=== PATIENT | male | born 1965 | race Caucasian/White ===

== ENCOUNTER 2022-06-23 18:16 | Emergency (ER) | payer SELFPAY ==
[~2022-06-23] VITALS: Ht 198 cm; Wt 122.0 kg
[2022-06-23 18:16] VITALS: BP 156/102
[2022-06-23] MEDS ORDERED: LACTATED RINGERS 1,000 ML IV ONE (19:00)
[2022-06-23 19:14] LABS: BASOPHILS % (AUTO) 0 % (0-10); EOSINOPHILS # (AUTO) 0.1 10^3/uL (0.0-0.3); EOSINOPHILS % (AUTO) 1 % (0-10); HEMATOCRIT 46 % (40-54); HEMOGLOBIN 15.1 g/dL (13.3-17.7); LYMPHOCYTES # (AUTO) 1.6 10^3/uL (1.0-4.0); LYMPHOCYTES % (AUTO) 16 % (12-44); MEAN CORPUSCULAR HEMOGLOBIN 29 pg (25-34); MEAN CORPUSCULAR HGB CONC 33 g/dL (32-36); MEAN CORPUSCULAR VOLUME 90 fL (80-99); MEAN PLATELET VOLUME 11.7 fL (9.0-12.2); MONOCYTES # (AUTO) 0.9 10^3/uL (0.0-1.0); MONOCYTES % (AUTO) 9 % (0-12); NEUTROPHILS # (AUTO) 7.5 10^3/uL (1.8-7.8); NEUTROPHILS % (AUTO) 74 % (42-75); PLATELET COUNT 179 10^3/uL (130-400); WHITE BLOOD COUNT 10.2 10^3/uL (4.3-11.0)
[2022-06-23 19:25] LABS: INR 1.1 (0.8-1.4); PROTHROMBIN TIME PATIENT 14.4 SEC (12.2-14.7)
--- NOTE | 2022-06-23 19:40 | Diagnostic Imaging Report ---
PROCEDURE: CT head and CT cervical spine without contrast. TECHNIQUE: Multiple contiguous axial images were obtained through the brain and cervical spine without the use of intravenous contrast. Sagittal and coronal reformations through the cervical spine were then performed. Auto Exposure Controls were utilized during the CT exam to meet ALARA standards for radiation dose reduction. INDICATION: Fall with head and neck injuries. CT HEAD: CT images of the head were obtained. FINDINGS: Ventricles and sulci are within normal limits for size. There is no intracranial hemorrhage identified. There is no abnormal mass effect or shift of midline structures. IMPRESSION: Unremarkable CT of the head. CT CERVICAL SPINE: Multiple contiguous axial CT images of the cervical spine were obtained with sagittal and coronal reformatted images produced. FINDINGS: The cervical curvature and alignment are within normal limits. The vertebral body heights and disc spaces are maintained without evidence of fracture or subluxation. There is no paraspinous hematoma. There is mild C5-C6 degenerative disc disease with endplate spurring present. IMPRESSION: No CT evidence of acute cervical spinal abnormality. Dictated by: Dictated on workstation # [id number]
--- NOTE | 2022-06-23 19:42 | Diagnostic Imaging Report ---
PROCEDURE: CT thoracic and lumbar spine without contrast. TECHNIQUE: Multiple contiguous axial images were obtained through the thoracic and lumbar spine without the use of intravenous contrast. Sagittal and coronal reformations were then performed. All CT scans use one or more of the following dose optimizing techniques: automated exposure control, MA and/or KvP adjustment based on patient size and exam type or iterative reconstruction. INDICATION: Fall with back pain. FINDINGS: Thoracolumbar spinal curvature and alignment are unremarkable. Vertebral body heights and disc spaces are maintained. There is no evidence of acute fracture or subluxation. No paraspinous hematoma seen. IMPRESSION: No CT evidence of acute thoracolumbar spinal injury. Dictated by: Dictated on workstation # [id number]
[2022-06-23 19:56] LABS: ALANINE AMINOTRANSFERASE 26 U/L (0-55); ALBUMIN 4.5 GM/DL (3.2-4.5); ALKALINE PHOSPHATASE 86 U/L (40-136); AMMONIA 23 UMOL/L (11-32); BILIRUBIN,TOTAL 0.8 MG/DL (0.1-1.0); BUN/CREATININE RATIO 11; CALCIUM 9.8 MG/DL (8.5-10.1); CARBON DIOXIDE 25 MMOL/L (21-32); CHLORIDE 104 MMOL/L (98-107); CREATINE KINASE 188 U/L (30-200); CREATININE SERUM 1.26 MG/DL (0.60-1.30); GFR ESTIMATED 67; GLUCOSE 97 MG/DL (70-105); MAGNESIUM 2.1 MG/DL (1.6-2.4); POTASSIUM 4.3 MMOL/L (3.6-5.0); SODIUM 139 MMOL/L (135-145); TOTAL PROTEIN 7.3 GM/DL (6.4-8.2)
--- NOTE | 2022-06-23 19:58 | Diagnostic Imaging Report ---
INDICATION: Fall. EXAMINATION: Single AP view of the chest was obtained. COMPARISON: No previous study is available for comparison at this time. FINDINGS: Heart size and pulmonary vasculature are within normal limits, and the lungs are clear, bilaterally. IMPRESSION: Unremarkable chest. Dictated by: Dictated on workstation # [id number]
--- NOTE | 2022-06-23 19:59 | Diagnostic Imaging Report ---
INDICATION: Fall with pelvic pain. EXAMINATION: AP view of the pelvis was obtained. FINDINGS: No acute fracture or dislocation is identified. No abnormal lytic or sclerotic focus is seen, and there is no radiopaque foreign body. IMPRESSION: No acute abnormality. Dictated by: Dictated on workstation # [id number]
--- NOTE | 2022-06-23 20:01 | ED General ---
General Chief Complaint: Trauma-Non Activation Stated Complaint: FALL Nursing Triage Note: ARRIVED VIA EMS FROM [facility]. EMS CALLED BECAUSE HE WAS HAVING A SURGING SENSATION IN HIS LEGS. PT STATES HE FELL THIS AM ET HAD +LOC. PT STATES HE WALKED TO [facility] AND IS HOMELESS. Source of Information: Patient (LIMITED HISTORIAN) Allergies and Home Medications Allergies Coded Allergies: No Known Drug Allergies (Unverified , 06/23/22) Patient Home Medication List Ciprofloxacin HCl (Ciprofloxacin HCl) 500 Mg Tablet, 500 MG PO BID Prescribed by: DEANDRE SALAS on 06/23/222101 Past Lketayc-Lladki-Obdupm Hx Patient Social History Tobacco Use?: Yes Tobacco type used: Cigarettes Smoking Status: Current Everyday Smoker Substance use?: Yes Additional substance use comme: PT STATES HE BUYS PAIN MEDS OFF THE STREETS Alcohol Use?: Yes Alcohol Frequency: Couple times a week Immunizations Up To Date Second COVID19 Vaccination Bret: UNKNOWN COVID19 Vaccine Last Greaser: UNKNOWN Physical Exam Vital Signs Vital Signs - First Documented 06/23/22 18:16 Temp 36.3 Pulse 98 Resp 16 B/P (MAP) 156/102 (120) Pulse Ox 99 O2 Delivery Room Air Capillary Refill : Less Than 3 Seconds Height, Weight, BMI Height: '" Weight: lbs. oz. kg; 31.00 BMI Method: Progress/Results/Core Measures Suspected Sepsis SIRS Temperature: Pulse: 98 Respiratory Rate: 16 Laboratory Tests 06/23/22 19:08: White Blood Count 10.2 Blood Pressure 156 /102 Mean: 120 Laboratory Tests 06/23/22 19:08: Creatinine 1.26, INR Comment 1.1, Platelet Count 179, Total Bilirubin 0.8 Results/Orders Lab Results Laboratory Tests Test 06/23/22 19:08 06/23/22 20:23 Range/Units White Blood Count 10.2 4.3-11.0 10^3/uL Red Blood Count 5.13 4.30-5.52 10^6/uL Hemoglobin 15.1 13.3-17.7 g/dL Hematocrit 46 40-54 % Mean Corpuscular Volume 90 80-99 fL Mean Corpuscular Hemoglobin 29 25-34 pg Mean Corpuscular Hemoglobin Concent 33 32-36 g/dL Red Cell Distribution Width 13.4 10.0-14.5 % Platelet Count 179 130-400 10^3/uL Mean Platelet Volume 11.7 9.0-12.2 fL Immature Granulocyte % (Auto) 0 % Neutrophils (%) (Auto) 74 42-75 % Lymphocytes (%) (Auto) 16 12-44 % Monocytes (%) (Auto) 9 0-12 % Eosinophils (%) (Auto) 1 0-10 % Basophils (%) (Auto) 0 0-10 % Neutrophils # (Auto) 7.5 1.8-7.8 10^3/uL Lymphocytes # (Auto) 1.6 1.0-4.0 10^3/uL Monocytes # (Auto) 0.9 0.0-1.0 10^3/uL Eosinophils # (Auto) 0.1 0.0-0.3 10^3/uL Basophils # (Auto) 0.0 0.0-0.1 10^3/uL Immature Granulocyte # (Auto) 0.0 0.0-0.1 10^3/uL Prothrombin Time 14.4 12.2-14.7 SEC INR Comment 1.1 0.8-1.4 Activated Partial Thromboplast Time 31 24-35 SEC Sodium Level 139 135-145 MMOL/L Potassium Level 4.3 3.6-5.0 MMOL/L Chloride Level 104 98-107 MMOL/L Carbon Dioxide Level 25 21-32 MMOL/L Anion Gap 10 5-14 MMOL/L Blood Urea Nitrogen 14 7-18 MG/DL Creatinine 1.26 0.60-1.30 MG/DL Estimat Glomerular Filtration Rate 67 BUN/Creatinine Ratio 11 Glucose Level 97 70-105 MG/DL Calcium Level 9.8 8.5-10.1 MG/DL Corrected Calcium 9.4 8.5-10.1 MG/DL Magnesium Level 2.1 1.6-2.4 MG/DL Total Bilirubin 0.8 0.1-1.0 MG/DL Aspartate Amino Transf (AST/SGOT) 24 5-34 U/L Alanine Aminotransferase (ALT/SGPT) 26 0-55 U/L Alkaline Phosphatase 86 40-136 U/L Ammonia 23 11-32 UMOL/L Total Creatine Kinase 188 30-200 U/L Creatine Kinase MB 2.4 <6.6 NG/ML Myoglobin 182.9 H 10.0-92.0 NG/ML Troponin I < 0.028 <0.028 NG/ML Total Protein 7.3 6.4-8.2 GM/DL Albumin 4.5 3.2-4.5 GM/DL Acetaminophen Level < 10 L 10-30 UG/ML Serum Alcohol < 10 <10 MG/DL Urine Color ORANGE Urine Clarity CLEAR Urine pH 6.0 5-9 Urine Specific Flanagan >=1.030 1.016-1.022 Urine Protein TRACE H NEGATIVE Urine Glucose (UA) NEGATIVE NEGATIVE Urine Ketones 1+ H NEGATIVE Urine Nitrite NEGATIVE NEGATIVE Urine Bilirubin 1+ H NEGATIVE Urine Urobilinogen 1.0 < = 1.0 MG/DL Urine Leukocyte Esterase NEGATIVE NEGATIVE Urine RBC (Auto) NEGATIVE NEGATIVE Urine RBC NONE /HPF Urine WBC NONE /HPF Urine Squamous Epithelial Cells 0-2 /HPF Urine Crystals NONE /LPF Urine Bacteria FEW H /HPF Urine Casts PRESENT /LPF Urine Hyaline Casts RARE /LPF Urine Mucus LARGE H /LPF Urine Culture Indicated YES Urine Opiates Screen NEGATIVE NEGATIVE Urine Oxycodone Screen NEGATIVE NEGATIVE Urine Methadone Screen NEGATIVE NEGATIVE Urine Propoxyphene Screen NEGATIVE NEGATIVE Urine Barbiturates Screen NEGATIVE NEGATIVE Ur Tricyclic Antidepressants Screen NEGATIVE NEGATIVE Urine Phencyclidine Screen NEGATIVE NEGATIVE Urine Amphetamines Screen POSITIVE H NEGATIVE Urine Methamphetamines Screen POSITIVE H NEGATIVE Urine Benzodiazepines Screen NEGATIVE NEGATIVE Urine Cocaine Screen NEGATIVE NEGATIVE Urine Cannabinoids Screen NEGATIVE NEGATIVE My Orders Orders - DEANDRE SALAS DO Ed Iv/Invasive Line Start (06/23/22 18:51) Ekg Tracing (06/23/22 18:51) Monitor-Rhythm Ecg Trace Only (06/23/22 18:51) Ct Head/Cervical Spine Wo (06/23/22 18:51) Ct Thoracic/Lumbar Spine Wo (06/23/22 18:51) Chest 1 View, Ap/Pa Only (06/23/22 18:51) Pelvis 1 To 2 Views (06/23/22 18:51) Acetaminophen (06/23/22 18:51) Alcohol (06/23/22 18:51) Ammonia (06/23/22 18:51) Cbc With Automated Diff (06/23/22 18:51) Comprehensive Metabolic Panel (06/23/22 18:51) Creatine Kinase (06/23/22 18:51) Creatine Kinase Mb (06/23/22 18:51) Drug Screen Stat (Urine) (06/23/22 18:51) Magnesium (06/23/22 18:51) Protime With Inr (06/23/22 18:51) Partial Thromboplastin Time (06/23/22 18:51) Ua Culture If Indicated (06/23/22 18:51) Myoglobin Serum (06/23/22 18:51) Troponin I [place] (06/23/22 18:51) Ed Iv/Invasive Line Start (06/23/22 18:51) Lactated Ringers (Lr 1000 Ml Iv Solution (06/23/22 19:00) Urine Culture (06/23/22 20:23) Ciprofloxacin Tablet (Cipro Tablet) (06/23/22 21:15) Medications Given in ED Current Medications Medications Dose Ordered Sig/Bradley Route Start Time Stop Time Status Last Admin Dose Admin Lactated Ringer's 1,000 ml @ 0 mls/hr Q0M ONCE IV 06/23/22 19:00 06/23/22 19:01 DC 06/23/22 19:07 0 MLS/HR Vital Signs/I&O 06/23/22 18:16 Temp 36.3 Pulse 98 Resp 16 B/P (MAP) 156/102 (120) Pulse Ox 99 O2 Delivery Room Air Capillary Refill : Less Than 3 Seconds Blood Pressure Mean: 120 Progress Note : Progress Note NO SYMPTOMS OF ANY KIND DURING UC STAY Departure Impression Primary Impression: SELF REPORTED FALL VS SYNCOPE Additional Impressions: NO APPARENT INJURIES Homelessness UTI (urinary tract infection) Illicit drug use Disposition: 01 HOME, SELF-CARE Condition: Stable Departure-Patient Inst. Patient Instructions: Preventing Falls in Older Adults, Urinary Tract Infection, Adult (DC) Add. Discharge Instructions: LOTS OF CLEAR LIQUIDS--WATER, BROTH, JELLO, GATORADE TYLENOL AND MOTRIN NEEDED FOR PAIN NO ALCOHOL OR DRUGS OR SMOKING FOLLOW UP WITH OF SALUD IN 2-3 DAYS FOR RECHECK RETURN TO ER IF SYMPTOMS WORSEN All discharge instructions reviewed with patient and/or family. Voiced understanding. Scripts Ciprofloxacin HCl (Ciprofloxacin HCl) 500 Mg Tablet 500 MG PO BID, #10 TAB Prov: DEANDRE SALAS DO 06/23/22 DEANDRE SALAS DO Jun 23, 2022 20:01
[2022-06-23 20:06] LABS: ACETAMINOPHEN < 10 UG/ML (10-30)
[2022-06-23 20:07] LABS: CREATINE KINASE MB 2.4 NG/ML (<6.6)
[2022-06-23 20:28] LABS: BILIRUBIN,URINE 1+ (NEGATIVE); CLARITY,URINE CLEAR; COLOR,URINE ORANGE; GLUCOSE, URINE (UA) NEGATIVE (NEGATIVE); KETONES,URINE 1+ (NEGATIVE); LEUKOCYTE ESTERASE ,URINE NEGATIVE (NEGATIVE); NITRITE,URINE NEGATIVE (NEGATIVE); PROTEIN,URINE TRACE (NEGATIVE)
[2022-06-23 20:48] LABS: BACTERIA,URINE FEW /HPF; HYALINE CASTS, URINE RARE /LPF; SQUAMOUS EPITHELIAL CELL,UR 0-2 /HPF
[2022-06-23] MEDS ORDERED: CIPR500T5 PO (21:02)
[2022-06-23 21:08] LABS: AMPHETAMINE SCREEN, URINE POSITIVE (NEGATIVE); BARBITURATE SCREEN URINE NEGATIVE (NEGATIVE); BENZODIAZEPINES SCREEN URINE NEGATIVE (NEGATIVE); CANNABINOID SCREEN, URINE NEGATIVE (NEGATIVE); COCAINE SCREEN URINE NEGATIVE (NEGATIVE); METHADONE STAT NEGATIVE (NEGATIVE); OPIATE SCREEN URINE NEGATIVE (NEGATIVE); OXYCODONE STAT NEGATIVE (NEGATIVE); PROPOXYPHENE STAT NEGATIVE (NEGATIVE); TRICYCLIC ANTIDEPRESSANTS SCRE NEGATIVE (NEGATIVE)
[2022-06-23] MEDS ORDERED: CIPROFLOXACIN 500 MG (CIPRO) TABLET PO SCH (21:15)
== END 2022-06-23 21:20 | disposition home or self-care (01) ==
LOC: ER 18:18
DX: R20.8 Other disturbances of skin sensation (principal); N39.0 Urinary tract infection, site not specified; F19.90 Other psychoactive substance use, unspecified, uncomplicated; F17.210 Nicotine dependence, cigarettes, uncomplicated; Z59.00 Homelessness unspecified; W19.XXXA Unspecified fall, initial encounter
CPT/HCPCS: 70450; 71045; 72125; 72128; 72131; 72170; 80053; 80306; 81000; 82140; 82550; 82553; 83735; 83874; 84484; 85025; 85610; 85730; 87088; 93005; 93041; 99284; G0480 ×2; 36415; 80320; 80329

== ENCOUNTER 2022-10-10 23:07 | Emergency (ER) | payer SELFPAY ==
[~2022-10-10] VITALS: Ht 182 cm; Wt 90.0 kg
[~2022-10-10 23:07] MED LIST: CIPR500T5 PO
[2022-10-10] MEDS ORDERED: NS IV 1000 ML 1,000 ML IV STA (23:22)
[2022-10-10 23:28] LABS: BASOPHILS # (AUTO) 0.1 10^3/uL (0.0-0.1); BASOPHILS % (AUTO) 1 % (0-10); EOSINOPHILS % (AUTO) 0 % (0-10); HEMATOCRIT 48 % (40-54); HEMOGLOBIN 16.1 g/dL (13.3-17.7); LYMPHOCYTES # (AUTO) 1.4 10^3/uL (1.0-4.0); LYMPHOCYTES % (AUTO) 13 % (12-44); MEAN CORPUSCULAR HEMOGLOBIN 31 pg (25-34); MEAN CORPUSCULAR HGB CONC 33 g/dL (32-36); MEAN CORPUSCULAR VOLUME 92 fL (80-99); MONOCYTES # (AUTO) 1.2 10^3/uL (0.0-1.0); MONOCYTES % (AUTO) 12 % (0-12); NEUTROPHILS # (AUTO) 7.7 10^3/uL (1.8-7.8); NEUTROPHILS % (AUTO) 74 % (42-75); PLATELET COUNT 153 10^3/uL (130-400); WHITE BLOOD COUNT 10.4 10^3/uL (4.3-11.0)
[2022-10-10 23:35] LABS: ALBUMIN 4.8 GM/DL (3.2-4.5); CHLORIDE 104 MMOL/L (98-107); POTASSIUM 4.8 MMOL/L (3.6-5.0); SODIUM 141 MMOL/L (135-145)
[2022-10-10 23:37] LABS: FIBRIN DEGRADATION PRODUCTS 0.29 UG/ML (0.00-0.49); GLUCOSE 100 MG/DL (70-105); INR 1.1 (0.8-1.4); PROTHROMBIN TIME PATIENT 14.2 SEC (12.2-14.7)
[2022-10-10 23:38] LABS: CARBON DIOXIDE 21 MMOL/L (21-32); TOTAL PROTEIN 7.8 GM/DL (6.4-8.2)
[2022-10-10 23:39] LABS: BILIRUBIN,TOTAL 1.7 MG/DL (0.1-1.0)
[2022-10-10 23:41] LABS: ALKALINE PHOSPHATASE 87 U/L (40-136); CREATININE SERUM 1.18 MG/DL (0.60-1.30); GFR ESTIMATED 73
[2022-10-10 23:42] LABS: BUN/CREATININE RATIO 15
[2022-10-10 23:44] LABS: ALANINE AMINOTRANSFERASE 27 U/L (0-55); CREATINE KINASE 917 U/L (30-200)
[2022-10-10 23:45] LABS: SALICYLATE < 5.0 MG/DL (5.0-20.0)
[2022-10-10 23:47] LABS: ACETAMINOPHEN < 10 UG/ML (10-30)
[2022-10-10 23:52] VITALS: BP 159/100
--- NOTE | 2022-10-10 23:52 | ED Neurological Problem ---
General Chief Complaint: Neurological Problems Stated Complaint: POSS STROKE Nursing Triage Note: pt presents to ED via EMS after being caught running into traffic, reportedly telling people he wanted to kill himself. pt having difficult time holding conversation, answering questions, and following commands. pt A&Ox2. Source: patient, EMS Exam Limitations: clinical condition History of Present Illness Date Seen by Provider: Oct 10, 2022 Time Seen by Provider: 23:10 Initial Comments Patient here by EMS with report by EMS of patient apparently walking into [facility] and reporting that he has white strings hanging off of them that are causing him to have an allergic reaction. Patient reportedly was stepping in front of a truck in traffic and EMS was called by police department. When EMS arrived on scene, patient was sitting with police department personnel. There was concern about possible stroke because he has left facial droop and bilateral lower extremity weakness. Patient very poor historian and does hold his mouth to the right but also changes position left and right with his mouth. Does move all 4 extremities but is very tense on the left extremity. He reportedly told law enforcement that he walked from the big [place] area to here today and he has not had anything to drink and is very thirsty. Timing/Duration: 1 hour, other (Unknown last well time) Severity: moderate Associated Symptoms: No fever/chills; slurred speech, weakness Allergies and Home Medications Allergies Coded Allergies: No Known Drug Allergies (Unverified , 06/23/22) Patient Home Medication List Home Medication List Reviewed: Yes Ciprofloxacin HCl (Ciprofloxacin HCl) 500 Mg Tablet, 500 MG PO BID Prescribed by: DEANDRE SALAS on 06/23/222101 Review of Systems Review of Systems Constitutional: No chills, No fever Ears, Nose, Mouth, Throat: no symptoms reported Respiratory: no symptoms reported Cardiovascular: No chest pain, No edema Gastrointestinal: No nausea, No vomiting Musculoskeletal: muscle stiffness, muscle weakness Skin: lesions (Few scattered bruises and abrasions especially on the arms) Psychiatric/Neurological: Anxiety; Denies Headache; Weakness Past Kdzruyq-Ogcfof-Vddjii Hx Patient Social History Tobacco Use?: No Substance use?: Yes Substance type: Marijuana, Other (Cocaine) Alcohol Use?: Unable to obtain Immunizations Up To Date Second COVID19 Vaccination Bret: UNKNOWN Past Medical History Surgeries: Yes (LEFT FOOT BUNIONECTOMY) Orthopedic Cardiac: Yes Irregular Heartbeat Neurological: No Genitourinary: No Gastrointestinal: No Musculoskeletal: Yes (LEFT FOOT BUNIONECTOMY-CHRONIC OPEN WOUND) Endocrine: No HEENT: No Cancer: No Psychosocial: Yes (SUBSTANCE ABUSE) Integumentary: Yes (CHRONIC FOOT WOUND FROM BUNIONECTOMY) Blood Disorders: No Family Medical History Reviewed Nursing Family Hx No Pertinent Family Hx Physical Exam Vital Signs Vital Signs - First Documented 10/10/22 23:09 Pulse 86 Resp 18 B/P (MAP) 159/100 (119) Pulse Ox 98 O2 Delivery Room Air Capillary Refill : Less Than 3 Seconds Height, Weight, BMI Height: '" Weight: lbs. oz. kg; 27.00 BMI Method: General Appearance: WD/WN, mild distress HEENT: PERRL/EOMI, pharynx normal Neck: full range of motion, supple, normal inspection Respiratory: lungs clear, normal breath sounds Cardiovascular: regular rate, rhythm, no murmur Gastrointestinal: non tender, soft Back: normal inspection, no CVA tenderness, no vertebral tenderness Extremities: non-tender, normal inspection Neurologic/Psychiatric: alert, oriented x 3 Crainal Nerves: facial asymmetry (Holes mild to the left and then to the right switching back and forth which gives the appearance of facial droop.), other (Speech difficult due to the way he holds his mouth.) Coordination/Gait: No ABN nose to finger (R); ABN nose to finger (L) Motor/Sensory: no pronator drift, weak motor strength RUE, weak motor strength LUE, weak motor strength RLE, weak motor strength LLE, other (Greatest on the left upper extremity) Skin: normal color, warm/dry Progress/Results/Core Measures Results/Orders Lab Results Laboratory Tests Test 10/10/22 23:12 10/10/22 23:14 Range/Units Glucometer 100 70-110 MG/DL White Blood Count 10.4 4.3-11.0 10^3/uL Red Blood Count 5.24 4.30-5.52 10^6/uL Hemoglobin 16.1 13.3-17.7 g/dL Hematocrit 48 40-54 % Mean Corpuscular Volume 92 80-99 fL Mean Corpuscular Hemoglobin 31 25-34 pg Mean Corpuscular Hemoglobin Concent 33 32-36 g/dL Red Cell Distribution Width 13.9 10.0-14.5 % Platelet Count 153 130-400 10^3/uL Mean Platelet Volume 12.0 9.0-12.2 fL Immature Granulocyte % (Auto) 0 % Neutrophils (%) (Auto) 74 42-75 % Lymphocytes (%) (Auto) 13 12-44 % Monocytes (%) (Auto) 12 0-12 % Eosinophils (%) (Auto) 0 0-10 % Basophils (%) (Auto) 1 0-10 % Neutrophils # (Auto) 7.7 1.8-7.8 10^3/uL Lymphocytes # (Auto) 1.4 1.0-4.0 10^3/uL Monocytes # (Auto) 1.2 H 0.0-1.0 10^3/uL Eosinophils # (Auto) 0.0 0.0-0.3 10^3/uL Basophils # (Auto) 0.1 0.0-0.1 10^3/uL Immature Granulocyte # (Auto) 0.0 0.0-0.1 10^3/uL Prothrombin Time 14.2 12.2-14.7 SEC INR Comment 1.1 0.8-1.4 Activated Partial Thromboplast Time 30 24-35 SEC D-Dimer 0.29 0.00-0.49 UG/ML Sodium Level 141 135-145 MMOL/L Potassium Level 4.8 3.6-5.0 MMOL/L Chloride Level 104 98-107 MMOL/L Carbon Dioxide Level 21 21-32 MMOL/L Anion Gap 16 H 5-14 MMOL/L Blood Urea Nitrogen 18 7-18 MG/DL Creatinine 1.18 0.60-1.30 MG/DL Estimat Glomerular Filtration Rate 73 BUN/Creatinine Ratio 15 Glucose Level 100 70-105 MG/DL Calcium Level 10.0 8.5-10.1 MG/DL Corrected Calcium 8.5-10.1 MG/DL Total Bilirubin 1.7 H 0.1-1.0 MG/DL Aspartate Amino Transf (AST/SGOT) 39 H 5-34 U/L Alanine Aminotransferase (ALT/SGPT) 27 0-55 U/L Alkaline Phosphatase 87 40-136 U/L Total Creatine Kinase 917 H 30-200 U/L Troponin I 0.039 H <0.028 NG/ML C-Reactive Protein High Sensitivity 1.06 H 0.00-0.50 MG/DL Total Protein 7.8 6.4-8.2 GM/DL Albumin 4.8 H 3.2-4.5 GM/DL Salicylates Level < 5.0 L 5.0-20.0 MG/DL Acetaminophen Level < 10 L 10-30 UG/ML Serum Alcohol < 10 <10 MG/DL My Orders Orders - AMANDA CARMICHAEL MD Cbc With Automated Diff (10/10/22:) Protime With Inr (10/10/22:) Partial Thromboplastin Time (10/10/22:) Comprehensive Metabolic Panel (10/10/22:) Fibrin Degradation Products (10/10/22:) Troponin I [place] (10/10/22:) Ua Culture If Indicated (10/10/22:) Chest 1 View, Ap/Pa Only (10/10/22:22) Ekg Tracing (10/10/22:) Nothing By Mouth (10/11/22 Breakfast) Accucheck Stat ONCE (10/10/22:) Ed Iv/Invasive Line Start (10/10/22 23:22) Ed Iv/Invasive Line Start (10/10/22 23:22) Vital Signs Stroke Patient Q15M (10/10/22 23:22) Ct Head Wo-R/O Stroke (10/10/22 23:22) O2 (10/10/22:) Intake & Output 06,14,22 (10/10/22 23:22) Monitor-Rhythm Ecg Trace Only (10/10/22:) Dysphagia Screening Tool [id number] (10/10/22:) Lipid Panel (10/11/22 06:00) Acetaminophen (10/10/22 23:22) Alcohol (10/10/22 23:22) Creatine Kinase (10/10/22 23:22) Hs C Reactive Protein (10/10/22:) Drug Screen Stat (Urine) (10/10/22:22) Salicylate (10/10/22 23:) Ns Iv 1000 Ml (Sodium Chloride 0.9%) (10/10/22 23:22) Ns Iv 1000 Ml (Sodium Chloride 0.9%) (10/11/22 00:15) Vital Signs/I&O 10/10/22 10/10/22 10/10/22 23:09 23:51 23:52 Pulse 86 81 86 Resp 18 18 18 B/P (MAP) 159/100 (119) 156/107 (123) 159/100 Pulse Ox 98 99 98 O2 Delivery Room Air Room Air Blood Pressure Mean: 119 FSBG Bedside Testing Finger Stick Blood Glucose: 100 Progress Progress Note : Progress Note Seen and evaluated on arrival by EMS. Stroke protocol initiated. Report from EMS to me. Stroke protocol initiated due to presenting symptoms and I have added drug screen as well as acetaminophen, salicylate and alcohol. Labs include CBC, CMP, D-dimer, troponin, total CK, UA. We will get CT of the head as well as chest x-ray. EKG ordered. Normal saline 1 L bolus ordered and this was repeated x1. Monitor patient. Differential diagnosis includes stroke, drug intoxication and adverse effect, dehydration, electrolyte abnormality, rhabdomyolysis 1215: Patient had negative CT and this was discussed with the radiologist at 2357. Chest x-ray shows no acute findings on my interpretation. Labs reviewed to this point and shows normal CBC. CMP shows normal electrolytes with slight elevation of total bili at 1.7 and slight elevation of AST of 39. Coags are negative. D-dimer is negative. Salicylate, acetaminophen and EtOH are negative. Troponin is slightly elevated at 0.039. EKG as below. Patient got up and started walking about the ED and stated that he was not going to stay for this stuff. He was quite anxious. We did try to calm the patient and encouraged him to stay. He was quite anxious and walking without difficulty. He left the ED by pushing through the EMS doors and walked away. We tried to stop him to get IV out but he would not stop. We did not try to restrain him due to concerns for staff safety. Law enforcement was notified. Chest x-ray interpreted by me shows no obvious infiltrate or pneumothorax. Initial ECG Impression Date: Oct 10, 2022 Initial ECG Impression Time: 23:50 Initial ECG Rate: 81 Initial ECG Rhythm: Normal Sinus Comment Significant amount of artifact noted on EKG with sinus rhythm underlying. No obvious ST elevation CT. Interpreted by me. Diagnostic Imaging Diagonstic Imaging: CT Plain Films/CT/US/NM/MRI: head Comments 235: Discussed case with radiologist's. Radiology report notes unremarkable noncontrast CT scan of the brain. Reviewed: Reviewed Night Tejk Study, Reviewed by Me Diagonstic Imaging: Xray Plain Films/CT/US/NM/MRI: chest Comments No acute abnormality on my interpretation. Reviewed: Reviewed by Me Departure Impression Primary Impression: Weakness Additional Impressions: Altered mental status Qualified Codes: R41.82 - Altered mental status, unspecified Rhabdomyolysis Qualified Codes: T79.6XXA - Traumatic ischemia of muscle, initial encounter Disposition: 07 AGAINST MEDICAL ADVICE Condition: Stable AMANDA CARMICHAEL MD Oct 10, 2022 23:52
[2022-10-11] MEDS ORDERED: NS IV 1000 ML 1,000 ML IV ONE (00:15)
--- NOTE | 2022-10-11 06:23 | Diagnostic Imaging Report ---
INDICATION: Altered mental status Portable chest 11:39 PM Heart and mediastinum are normal. Lungs are clear. There are no effusions or pneumothoraces. IMPRESSION: Negative chest Dictated by: Dictated on workstation # [id number]
--- NOTE | 2022-10-11 06:48 | Diagnostic Imaging Report ---
EXAMINATION: CT head without contrast. TECHNIQUE: Multiple contiguous axial images were obtained through the brain without the use of intravenous contrast. All CT scans use one or more of the following dose optimizing techniques: automated exposure control, MA and/or KvP adjustment based on patient size and exam type or iterative reconstruction. HISTORY: Altered mental status. COMPARISON: 06/23/2022. FINDINGS: No large acute territorial ischemia, mass, or hemorrhage. No midline shift or mass effect. The ventricles, cortical sulci, and basilar cisterns are patent and unremarkable. The orbits are normal. Paranasal sinuses are normal. Mastoid air cells are clear. No soft tissue abnormality is seen. No osseus lesions or fractures are seen. IMPRESSION: 1. No large acute territorial ischemia, mass, or hemorrhage. Agree with overnight report. Dictated by: Dictated on workstation # [id number]
== END 2022-10-11 00:15 | disposition left against medical advice (07) ==
LOC: EDUNIT# 23:07 → ER 23:08
DX: M62.82 Rhabdomyolysis (principal); R41.82 Altered mental status, unspecified; E80.7 Disorder of bilirubin metabolism, unspecified; R74.01 Elevation of levels of liver transaminase levels; R77.8 Other specified abnormalities of plasma proteins
CPT/HCPCS: 70450; 71045; 80053; 82550; 82947; 84484; 85025; 85379; 85610; 85730; 86141; 93005; 93041; 99284; G0480 ×3; 36415; 80320; 80329